=== PATIENT | male | born 1955 | race Caucasian/White ===

== ENCOUNTER 2019-05-09 12:56 | Outpatient (CLI) | payer MEDICARE, OTHER, SELFPAY ==
--- NOTE | ~2019-05-09 | US_ITS ---
EXAMINATION: US venous doppler [facility] DATE: 05/09/2019 13:36 INDICATION: Left lower limb swelling. TECHNIQUE: Grayscale ultrasound images without and with compression and Doppler ultrasound images of the left lower extremity veins were obtained. COMPARISON: Ultrasound 02/18/2016 FINDINGS: The visualized portions of left common femoral vein, profunda (deep) femoral vein, femoral vein, popl iteal vein, peroneal veins, posterior tibial veins, and greater saphenous vein outflow are patent. IMPRESSION: 1. No deep venous thrombosis. Reviewed, dictated and finalized at location A. MACHINE OPERATOR
== END 2019-05-09 12:57 | disposition home or self-care (01) ==
PROVIDERS: PCP Family Medicine; Visit Provider Orthopaedic Surgery
DX: M79.89 Other specified soft tissue disorders (principal)
CPT/HCPCS: 93971

== ENCOUNTER 2020-10-29 11:31 | Outpatient (CLI) | payer MEDICARE, OTHER, SELFPAY ==
--- NOTE | 2020-10-29 11:30 | ECG_ITS ---
Measurements Intervals [place] Rate: 67 P: 39 WA: 168 QRS: -7 QRSD: 110 T: 4 QT: 385 QTc: 409 Interpretive Statements SINUS RHYTHM BORDERLINE T WAVE ABNORMALITY- INFERIOR LEADS BASELINE ARTIFACT- I, II, III, AVR, AVL, AVF BORDERLINE ECG Electronically Signed On 10-29-2020 12:25:06 CDT by Ad Fajardo D.O.
[2020-10-29 12:37] LABS: Anion Gap 10 mmol/L (8-16); Blood Urea Nitrogen 20 mg/dL (9-20); Calcium 9.6 mg/dL (8.4-10.2); Carbon Dioxide 24 mmol/L (22-30); Chloride 107 mmol/L (98-107); Estimated Glomerular Filt Rate > 60; Glucose 105 mg/dL (65-110); Sodium 141 mmol/L (137-145)
== END 2020-10-29 11:32 | disposition home or self-care (01) ==
LOC: ANHSURGERY 11:38
PROVIDERS: Anesthesiology; PCP Family Medicine; Visit Provider Otolaryngology
DX: Z01.818 Encounter for other preprocedural examination (principal); I10 Essential (primary) hypertension; E11.9 Type 2 diabetes mellitus without complications
CPT/HCPCS: 36415; 80048; 93005

== ENCOUNTER → 2020-10-30 00:22 | Outpatient (CLI) | payer MEDICARE, OTHER, SELFPAY ==
[2020-10-30 16:43] LABS: SARS-CoV-2 RNA PCR Negative
== END ==
PROVIDERS: PCP Family Medicine; Visit Provider Otolaryngology
DX: Z01.812 Encounter for preprocedural laboratory examination (principal); Z20.822 Contact with and (suspected) exposure to COVID-19
CPT/HCPCS: C9803; U0003; U0005

== ENCOUNTER 2020-11-02 01:11 | Day surgery (SDC) | payer MEDICARE, OTHER, SELFPAY ==
[2020-10-28 13:55] VITALS: BMI 30.2
--- NOTE | 2020-11-01 06:13 | P.HP_ITS ---
History of Present Illness History of Present Illness Consent: Risks, benefits, and alternatives have been discussed and questions answered. Patient agrees to proceed with procedure. Chief complaint: vocal cord nodules Narrative: Jon Moreira is a 65 year old male a long history of hoarseness he has been evaluated and scoped in the office several times was seen by another consulting practice director vocal nodule was diagnosed he is admit Review of Systems Review of Systems: All systems reviewed & are unremarkable except as noted in HPI and below PMFSH Past Medical History Medical History Anemia Ankle fracture, right Chronic anxiety Chronic depression Chronic hip pain, bilateral Chronic low back pain without sciatica Chronic pain of right knee Closed patellar sleeve fracture of left knee with routine healing Collar bone fracture Coronary artery disease involving [place] coronary artery of [place] heart without angina pectoris Diabetic peripheral neuropathy Essential (primary) hypertension Finger fracture Irritable bowel syndrome with diarrhea Male erectile dysfunction, unspecified Mixed hyperlipidemia Other chronic pain Type 2 diabetes mellitus without complication, without long-term current use of insulin Vitamin B12 deficiency anemia, unspecified Surgical History Surgical History History of cholecystectomy Family History Family History Mother Diabetes mellitus Heart disease Social History Social History Smoking packs per day: 2 Smoking cigarettes per day: 40.0 Years smoked: 17 Smoking pack-years: 34.00 Smoking status: Former smoker Tobacco type: cigarettes Smoking end date: 04/09/87 Alcohol intake: never Substance use: never Substance use type: does not use Gender identity (if verbalized by the patient): Male Spiritual care concerns: No Meds Home Medications and Allergies Home Medications Medication Instructions Recorded Confirmed Type cyanocobalamin (vitamin B-12) 1,000 mcg PO DAILY 03/05/19 10/28/20 History 1,000 mcg tablet nebivolol 5 mg tablet 5 mg PO DAILY #90 tablet 12/17/19 10/28/20 Rx gabapentin 600 mg tablet See Rx Instructions .ROUTE 01/19/20 10/28/20 Rx .COMPLEX #270 tablet lisinopril 40 mg tablet 40 mg PO DAILY #30 tablet 07/02/20 10/28/20 Rx metformin 500 mg tablet,extended 1,000 mg PO BID #120 tablet 09/27/20 10/28/20 Rx release 24 hr alprazolam 1 mg PO HS PRN 10/28/20 10/28/20 History Allergies Allergy/AdvReac Type Severity Reaction Status Date / Time adhesive tape AdvReac TEARS SKIN Verified 10/28/20 13:35 Exam Narrative: Exam Narrative: chest clear heart without murmurs abdomen is soft extremities negative fiberoptic evaluation reveals a vocal nodule Assessment and Plan Additional Plan plan microlaryngoscopy and biopsy of
--- NOTE | 2020-11-01 12:17 | WPDANESEPPF ---
Anes - Initial Pre Proc Eval Procedure: Operation Date: 11/02/20 09:45 Proposed Procedures p Microlaryngoscopy With Biopsy - Avery Farris MD Date/Time: 11/01/20 12:17 Surgeon: Avery Farris MD Pre Op Diagnosis: vocal cord nodules Patient Data Age: 65 Gender: M Height: 1.78 m Weight: 95.35 kg Allergies Allergy/AdvReac Type Severity Reaction Status Date / Time adhesive tape AdvReac TEARS SKIN Verified 11/02/20 07:54 Home Medications Medication Instructions Recorded Confirmed Type cyanocobalamin (vitamin B-12) 1,000 mcg PO DAILY 03/05/19 11/02/20 History 1,000 mcg tablet nebivolol 5 mg tablet 5 mg PO DAILY #90 tablet 12/17/19 11/02/20 Rx gabapentin 600 mg tablet See Rx Instructions .ROUTE 01/19/20 11/02/20 Rx .COMPLEX #270 tablet lisinopril 40 mg tablet 40 mg PO DAILY #30 tablet 07/02/20 11/02/20 Rx metformin 500 mg tablet,extended 1,000 mg PO BID #120 tablet 09/27/20 11/02/20 Rx release 24 hr alprazolam 1 mg PO HS PRN 10/28/20 11/02/20 History Patient hx anesthesia problems: none Family hx anesthesia problems: none PMFSH Past Medical History Medical History (Updated 11/01/20 @ 12:17 by Artemio Cononrs DO) Anemia Ankle fracture, right Chronic anxiety Chronic depression Chronic hip pain, bilateral Chronic low back pain without sciatica Chronic pain of right knee Closed patellar sleeve fracture of left knee with routine healing Collar bone fracture Coronary artery disease involving [place] coronary artery of [place] heart without angina pectoris Diabetic peripheral neuropathy Essential (primary) hypertension Finger fracture History of heart attack 2017 Irritable bowel syndrome with diarrhea Male erectile dysfunction, unspecified Mixed hyperlipidemia Other chronic pain Type 2 diabetes mellitus without complication, without long-term current use of insulin Vitamin B12 deficiency anemia, unspecified Surgical History Surgical History (Updated 11/01/20 @ 12:17 by Artemio Connors DO) History of cholecystectomy History of coronary artery stent placement x2 Family History Family History Mother Diabetes mellitus Heart disease Social History Social History Smoking packs per day: 2 Smoking cigarettes per day: 40.0 Years smoked: 17 Smoking pack-years: 34.00 Smoking status: Former smoker Tobacco type: cigarettes Smoking end date: 04/09/87 Alcohol intake: never Substance use: never Substance use type: does not use Living arrangements: with family Gender identity (if verbalized by the patient): Male Spiritual care concerns: No Anes - Eval Final PreProcedure Day of Procedure 11/01/20 12:17 Patient weight: obese Heart: regular rate and rhythm Lungs: clear to auscultation and normal air movement Airway: Mallampati scale class III Neurological: alert and oriented Last oral intake: >/= 8 hours ASA classification: III Emergent: no Anesthetic plan: proceed Anesthesia type and monitoring: general ETT and standard monitoring Informed Consent: The patient's anesthetic plan and its attendant risks and benefits were discussed with the patient/family/POA. Questions were solicited and answers provided to the satisfaction of the patient/family/POA.
[2020-11-02] VITALS (7 sets, daily range): BP systolic 103–134; BP diastolic 68–90; PULSE 54–64; RESP 16–18; TEMP 36.2; O2SAT 94–100
--- NOTE | 2020-11-02 06:19 | WPDHPUPDATE1 ---
History and Physical Update Update Date/Time: 11/02/20 06:19 History and Physical has been reviewed, including an updated exam of the patient. There are NO changes in the patient's condition. Risks, benefits, and alternatives have been discussed and questions answered. Patient agrees to proceed with procedure.
[2020-11-02] MEDS: LACTATED RINGERS 1,000 ML 30 ML IV CONT (08:08)
[2020-11-02 08:13] LABS: Glucose Point of Care 112 mg/dl (65-105)
--- NOTE | 2020-11-02 09:26 | W.PM.PROC2 ---
Procedure Note - Detailed Date of Procedure 11/02/20 Pre-op Diagnosis vocal cord nodules Post-op Diagnosis same Procedure Performed microlaryngoscopy and vocal cord biopsy left side Surgeon Avery Farris MD Anesthesia general Description of Procedure patient was prepped and draped in usual fashion general anesthesia the laryngoscope was edges level of glottis with the aid of micro technique and a 4 mm lens on the operating microscope a small nodule on the left anterior cord was grasped removed patient awakened returned to recovery in good Estimated Blood Loss 0 Pathology yes Complications No immediate complications Condition stable Disposition PACU
[2020-11-02 09:52] LABS: Glucose Point of Care 102 mg/dl (65-105)
== END 2020-11-02 10:57 | disposition home or self-care (01) ==
PROVIDERS: PCP Family Medicine; Visit Provider Otolaryngology
PROC: 0CJS8ZZ Inspection of Larynx, Via Natural or Artificial Opening Endoscopic (ICD-10-PCS; CPT 31575; principal; 2020-11-02 09:45)
DX: J38.2 Nodules of vocal cords (principal); I10 Essential (primary) hypertension; E11.42 Type 2 diabetes mellitus with diabetic polyneuropathy; I25.2 Old myocardial infarction; E78.2 Mixed hyperlipidemia; K58.0 Irritable bowel syndrome with diarrhea; I25.10 Atherosclerotic heart disease of native coronary artery without angina pectoris; G89.29 Other chronic pain; D51.3 Other dietary vitamin B12 deficiency anemia; F41.8 Other specified anxiety disorders; Z79.84 Long term (current) use of oral hypoglycemic drugs; Z87.891 Personal history of nicotine dependence; E66.9 Obesity, unspecified; Z68.29 Body mass index [BMI] 29.0-29.9, adult
CPT/HCPCS: 31536; 82948; 88305; J0330; J1100; J2250; J2405; J2704; J3010; J7120

== ENCOUNTER 2023-09-08 07:10 | Outpatient (CLI) | payer MEDICARE, OTHER, SELFPAY ==
[2023-09-08 08:06] LABS: Basophils Percent Auto 0.6 % (0.2-1.2); Eosinophils Absolute Auto 0.1 K/mm3 (0-0.3); Hematocrit 36.3 % (42.0-52.0); Hemoglobin 11.9 g/dL (14.0-18.0); Immature Granulocyte Absolute 0.01 K/mm3 (0.00-0.031); Immature Granulocyte Percent A 0.2 % (0-0.5); Lymphocytes Absolute Auto 1.85 K/mm3 (0.9-3.2); Lymphocytes Percent Auto 37.9 % (18.3-44.2); Mean Corpuscular HGB Conc 32.8 g/dl (32-36); Mean Corpuscular Hemoglobin 30.4 pg (26-34); Mean Corpuscular Volume 92.8 fl (80-100); Monocytes Absolute Auto 0.4 K/mm3 (0.1-0.6); Monocytes Percent Auto 8.2 % (2.6-8.5); Neutrophils Absolute Auto 2.5 K/mm3 (1.3-6.7); Neutrophils Percent Auto 51.1 % (45.5-73.1); Platelet Count Result 195 k/mm3 (150-375); Red Blood Count 3.91 M/mm3 (4.6-6.20); Red Cell Distribution Width 14.5 % (11.5-14.5); White Blood Count 4.9 K/mm3 (4.5-10.0)
[2023-09-08 08:14] LABS: Appearance Urine Clear (Clear); Bilirubin Urine Negative (Negative); Blood Urine Negative (Negative); Color Urine Yellow (Yellow); Glucose Urine UA Negative (Negative); Ketones Urine Negative (Negative); Leukocyte Esterase Ur Negative LEU/UL (Negative); Nitrate Urine Negative (Negative); Protein Urine Negative (Negative); Specific Grav Ur 1.009 (1.001-1.035)
[2023-09-08 08:17] LABS: Alanine Aminotransferase 11 U/L (6-50); Albumin Level 4.1 g/dL (3.5-5.1); Alkaline Phosphatase 73 U/L (38-126); Anion Gap 7 mmol/L (4-12); Aspartate Amino Transferase 19 U/L (17-59); Bilirubin,Total 0.6 mg/dL (0.2-1.3); Blood Urea Nitrogen 13 mg/dL (9-20); Carbon Dioxide 25 mmol/L (22-30); Chloride 103 mmol/L (98-107); Cholesterol 193 mg/dL (0-200); Estimated Glomerular Filt Rate > 60; Glucose 126 mg/dL (65-110); HDL Direct 48 mg/dL; Potassium 4.3 mmol/L (3.4-5.0); Sodium 135 mmol/L (137-145); Triglycerides 111 mg/dL (<150)
[2023-09-08 08:27] LABS: Add Urine Microscopic? NO
[2023-09-08 08:28] LABS: LDL Cholesterol Direct 112 mg/dL
[2023-09-08 08:52] LABS: Iron 49 ug/dL (49-181)
[2023-09-08 09:09] LABS: Percent Iron Saturation 15 % (20-50)
[2023-09-08 09:22] LABS: Folic Acid 6.1 ng/mL (2.76->20)
[2023-09-08 09:27] LABS: Ferritin 9.21 ng/mL (11.1-264)
[2023-09-08 09:30] LABS: Hemoglobin A1C 6.6 % (<5.7)
== END 2023-09-08 07:11 | disposition home or self-care (01) ==
PROVIDERS: PCP Family Medicine; Visit Provider Family Medicine
DX: D64.9 Anemia, unspecified (principal); E11.9 Type 2 diabetes mellitus without complications; E78.2 Mixed hyperlipidemia
CPT/HCPCS: 36415; 80048; 80061; 80076; 81003; 82607; 82728; 82746; 83036; 83540; 83550; 84443; 85025

== ENCOUNTER 2024-05-24 06:55 | Outpatient (CLI) | payer MEDICARE, OTHER, SELFPAY ==
--- OUTSIDE RECORDS SUMMARY | 2024-05-24 06:59 | XMS_ITS | Continuity of Care Document ---
Author Organization [facility] [place] [address] [place] [address] [place] [address] Phone Care Team Providers Care Sandfill Operator Name Role Phone Deni Davis Unavailable Unavailable Procedures Procedure Date Eye Exam Established Pt SV Hi-Index Sphere +/- 4.12 To +/-7.00 M Tint Photochromatic, Hi Index 8 Prism Lens/es Tax - Medical Advance Directives Directive Yes / No Effective Date File Name No Information Encounters Encounter Description Practice Location Reason(s) For Visit Diagnoses Date Provider Providers Copied on Encounter [facility], [address] [place], [place] [address], [place], [place], [id number], [place] tel:[phone] [facility] No Information [address]. Formerly [facility] [address], [place], [address], [place]. tel:[phone] [facility], [address] [place] [address] [address], [place], [place], [id number], [place] tel:[phone] [facility] No Information [address] [facility]. [address] [facility], [address], [place], [place], [id number], [place]. tel:[phone] Referring Provider: Andrew Marin, [address] [facility] [address], [place], [address]. tel:[phone] lux Provider: Nadya Terry, [address] [facility], [place], [address]. tel:[phone] Family History Family Member Type Diagnosis Age At Onset No Information Payers Payer name Insurance type Covered constitution party ID Authoriza tion(s) No Information Social History Type Description Quantity Date Captured Comments Sex Male Smoking Status No Information Chief Complaint And Reason For Visit No Information Reason For Referral Reason For Referral No Information History Of Present Illness Encounter Date Complaint History Of Prese nt Illness No Information Functional Status Date Functional Assessmen t No Information Instructions Date Instruction Additional Infor mation No Information Assessments Type Assessment Date No Information Patient Care Teams Name Effective Dates (start - stop) Status Members No Information
--- OUTSIDE RECORDS SUMMARY | 2024-05-24 06:59 | XMS_ITS | Clinical Summary ---
Author Organization [facility] [address] Address [address] [place] [address] Care Team Providers Care Tinsmith Helper Name Role Phone Cooper Carrillo MD Primary Care Provider [phone] Allergies Active Allergy Reactions Criticality Noted Date Comments Adhesive Tape-Silicones Unknown 02/06/2017 Medications ALPRAZolam (XANAX) 1 mg tablet Take 1 tablet (1 mg total) by mouth daily as needed 5 01/26/2017 Active gabapentin (NEURONTIN) 600 mg tablet Take 1 tablet (600 mg total) by mouth 2 (two) times a day 3 01/11/2017 Active lisinopril (PRINIVIL,ZESTR IL) 40 mg tablet Take 1 tablet (40 mg total) by mouth 2 (two) times a day 11 01/26/2017 Active metFORMIN XR (GLUCOPHAGE XR) 500 mg 24 hr tablet Take 1 tablet (500 mg total) by mouth 2 (two) times a day with meals 11 01/11/2017 Active BYSTOLIC 10 mg tablet Take 0.5 tablets (5 mg total) by mouth daily 5 01/11/2017 Active cyanocobalamin (Vitamin B-12) 1,000 mcg tabletIndicatio ns:Prevention of Vitamin B12 Deficiency Take 100 mcg by mouth daily. Active aspirin 81 mg tablet Take 1 tablet (81 mg total) by mouth daily. 90 tablet 1 12/18/2017 Active nitroglycerin (NITROSTAT) 0.[address] 1 tablet (0.4 mg total) under the tongue every 5 (five) minutes as needed for chest pain 25 tablet 08/12/2019 Active Active Problems Problem Noted Date Diagnosed Date History of coronary artery stent placement 02/05 Erectile dysfunction due to diseases classified elsewhere 05/18/2017 History of non-ST elevation myocardial infarctio n (NSTEMI) 02/06/2017 Diabetes mellitus type II, non insulin dependent (CMS/HCC) 02/06/2017 Essential hypertension 02/06/2017 Dyslipidemia 02/06/2017 Anxiety Surgical History Surgery Date Site/Laterality Comments CHOLECYSTECTOMY Medical History Medical History Date Comments Anxiety Erectile dysfunction due to diseases classified elsewhere 05/18/2017 Family History Medical History Relation Name Comments Cancer Brother Diabetes Mother Cirrhosis Sister Relation Name Status Comments Brother Mother Sister Social History Tobacco Use Types Packs/Day Years Used Date Smoking Tobacco: Former Smokeless Tobacco: Never Tobacco Cessation:Counseling Given: Not Answered Alcohol Use Standard Drinks/Week Comments No 0 (1 standard drink = 0.6 oz pur e alcohol) Personal Safety Answer Date Recorded Getting School Help Needed Not on file 05/14 Sex and Gender Information Value Date Recorded Sex Assigned at Not on file Legal Sex Male 9:32 AM CDT Gender Identity Not on file Sexual Orientation Not on file Obstetrics History Last Filed Vital Signs Vital Sign Reading Time Taken Comments Blood Pressure 104/64 08/21/2023 3:08 PM CDT Pulse 88 08/21/2023 3:08 PM CDT Temperature - - Respiratory Rate - - Oxygen Saturation 95% 08/21/2023 3:08 PM CDT Inhaled Oxygen Concentration - - Weight 101.2 kg (223 lb 3.2 oz) 08/21/2023 3:08 PM CDT Height 177.8 cm (5' 10 ) 08/21/2023 3:08 PM CDT Body Mass Index 32.03 08/21/2023 3:08 PM CDT Plan of Treatment Health Maintenance Due Date Last Done Comments Albumin Creatinine Ratio, Urine 1953 Colon Cancer Screening-Colonoscopy 1953 Depression Screening 1953 Fall Risk Assessment 1953 Hemoglobin A1C 1953 Hepatitis C Screening 1953 eGFR 1953 Dilated Eye Exam 1953 Foot Exam 1953 Pneumococcal vaccine 65+ (1 of 2 - PCV) 1959 DTaP/Tdap/Td Vaccine (1 - Tdap) 1964 Hepatitis B Screening 1971 Zoster Vaccine (1 of 2) 2003 Abdominal Aortic Aneurysm (A AA) Screen 2018 Well Visit 65+ 2018 Covid-19 Vaccine (3 - 2023-2 5 season) 2023 11/04/2020, 10/14/2020 Influenza Vaccine (#1) 2023 Lipid Panel 08/20/2024 08/21/2023, 08/07, 08/16/2021, Additional history exists Procedures Procedure Name Priority Date/Time Associated Diagnosis Comments POCT LIPID PANEL Routine 08/21/2023 3:09 PM CDT Lipid screening from Last 3 Months or Most Recently Relevant to Health Maintenance Results * POCT lipid panel (08/21/2023 3:09 PM CDT) Cholesterol, POC 190 mg/dL HDL, POC 43 mg/dL Triglycerides, POC 124 mg/dL LDL Cholesterol POC 122 mg/dL Chol/HDL Ratio, POC 29 Non-HDL Cholesterol, POC 147 mg/dL Cholesterol Total, POC 190 mg/dL Capillary blood 08/21/2023 3 :09 PM CDT Teddy Humphries MD POINT OF CARE TEST ORDER [place] Edited Result - Final from Last 3 Months or Most Recently Relevant to Health Maintenance Insurance MEDICARE [employer] [facility] [place] [address] [id number] MEDICARE [address] [address] MEDICARE [employer]IANS [facility] Care Teams Tinsmith Helper Relationship Specialty Start Date End Date Cooper Carrillo MD [address] [id number] PCP - General Family Medicine 01/22/17
--- OUTSIDE RECORDS SUMMARY | 2024-05-24 06:59 | XMS_ITS | Referral Summary ---
Author Organization [facility] [place] [place] [address] Address [address] [place] [address] Care Team Providers Care Interactive Web Developer Name Role Phone Cooper Carrillo MD Primary Care Provider [phone] Allergies Active Allergy Reactions Criticality Noted Date [...] 02/06/2017 Essential hypertension 02/06/2017 Dyslipidemia 02/06/2017 Anxiety Social History Tobacco Use Types Packs/Day Years [...] on file Sexual Orientation Not on file Last Filed Vital Signs Vital Sign Reading [...] 08/21/2023 3:08 PM CDT Plan of Treatment Not on file Procedures Procedure Name Priority Date/Time Associated Diagnosis [...] Most Recently Relevant to Health Maintenance Insurance [address] [id number] MEDICARE [facility] [place] MEDICARE MEDICARE [facility] [facility] Care Teams Interactive Web Developer Relationship Specialty Start Date End Date Cooper Carrillo MD [address] [address] PCP - General Family Medicine 01/22/17
[2024-05-24 07:22] LABS: Basophils Percent Auto 0.4 % (0.2-1.2); Eosinophils Absolute Auto 0.1 K/mm3 (0-0.3); Eosinophils Percent Auto 1.5 % (0-4.4); Hematocrit 37.9 % (42.0-52.0); Hemoglobin 12.4 g/dL (14.0-18.0); Immature Granulocyte Absolute 0.01 K/mm3 (0.00-0.031); Immature Granulocyte Percent A 0.2 % (0-0.5); Lymphocytes Absolute Auto 1.47 K/mm3 (0.9-3.2); Lymphocytes Percent Auto 32.1 % (18.3-44.2); Mean Corpuscular HGB Conc 32.7 g/dl (32-36); Mean Corpuscular Hemoglobin 29.8 pg (26-34); Mean Corpuscular Volume 91.1 fl (80-100); Mean Platelet Volume 9.5 fl (7.4-10.4); Monocytes Absolute Auto 0.4 K/mm3 (0.1-0.6); Monocytes Percent Auto 7.9 % (2.6-8.5); Neutrophils Absolute Auto 2.7 K/mm3 (1.3-6.7); Neutrophils Percent Auto 57.9 % (45.5-73.1); Platelet Count Result 192 k/mm3 (150-375); Red Blood Count 4.16 M/mm3 (4.6-6.20); Red Cell Distribution Width 16.4 % (11.5-14.5); White Blood Count 4.6 K/mm3 (4.5-10.0)
[2024-05-24 07:24] LABS: Add Urine Microscopic? NO; Appearance Urine Clear (Clear); Bilirubin Urine Negative (Negative); Blood Urine Negative (Negative); Color Urine Yellow (Yellow); Glucose Urine UA Negative (Negative); Ketones Urine Negative (Negative); Leukocyte Esterase Ur Negative LEU/UL (Negative); Nitrate Urine Negative (Negative); Protein Urine Negative (Negative); Specific Grav Ur 1.016 (1.001-1.035)
[2024-05-24 07:32] LABS: Hemoglobin A1C 7.7 % (<5.7)
[2024-05-24 07:34] LABS: Alanine Aminotransferase 19 U/L (6-50); Albumin Level 4.2 g/dL (3.5-5.1); Alkaline Phosphatase 84 U/L (38-126); Anion Gap 9 mmol/L (4-12); Aspartate Amino Transferase 20 U/L (17-59); Bilirubin,Total 0.6 mg/dL (0.2-1.3); Blood Urea Nitrogen 14 mg/dL (9-20); Calcium 9.3 mg/dL (8.4-10.2); Carbon Dioxide 23 mmol/L (22-30); Chloride 106 mmol/L (98-107); Cholesterol 189 mg/dL (0-200); Estimated Glomerular Filt Rate > 60; Glucose 137 mg/dL (65-110); HDL Direct 54 mg/dL; Potassium 4.4 mmol/L (3.4-5.0); Sodium 138 mmol/L (137-145); Triglycerides 71 mg/dL (<150)
[2024-05-24 07:45] LABS: LDL Cholesterol Direct 114 mg/dL
[2024-05-24 08:03] LABS: Prostate Specific Antigen 0.2 ng/mL (< OR = 4.0)
[2024-05-24 08:11] LABS: Iron 55 ug/dL (49-181)
[2024-05-24 08:20] LABS: Percent Iron Saturation 15 % (20-50)
[2024-05-24 08:42] LABS: Microalbumin Urine Random 6.8 mg/L (0-16.7)
[2024-05-24 08:43] LABS: Creatinine Urine 101.9 mg/dL; MALB Creatinine Ratio 6.7 mg/g (0-30)
== END 2024-05-24 06:56 | disposition home or self-care (01) ==
PROVIDERS: PCP Family Medicine; Visit Provider Family Medicine
DX: E11.9 Type 2 diabetes mellitus without complications (principal); R79.0 Abnormal level of blood mineral; Z12.5 Encounter for screening for malignant neoplasm of prostate; E78.2 Mixed hyperlipidemia
CPT/HCPCS: 36415; 80048; 80061; 80076; 81003; 82043; 82728; 83036; 83540; 83550; 84153; 85025; G0103

== ENCOUNTER 2024-11-29 06:34 | Outpatient (CLI) | payer MEDICARE, OTHER, SELFPAY ==
--- OUTSIDE RECORDS SUMMARY | 2024-11-29 06:37 | XMS_ITS | Clinical Summary ---
Author Organization [facility] [place] [address] Address [address] [place] [address] Care Team Providers Care Supervisor Rod Placing Name Role Phone Cooper Carrillo MD Primary Care Provider [phone] Allergies Active Allergy Reactions Criticality Noted Date [...] for chest pain 25 tablet 08/12/2019 Active HYDROcodone-kourtney taminophen (NORCO) 5-325 mg per tablet 1 TABLET ORALLY FOUR TIMES DAILY NEEDED FOR PAIN 09/29/2024 Active Active Problems Problem Noted Date Diagnosed Date History of coronary artery stent placement 02/05 Erectile dysfunction due to diseases classified elsewhere 05/18/2017 History of non-ST elevation myocardial infarctio n (NSTEMI) 02/06/2017 Diabetes mellitus type II, non insulin dependent 02/06/2017 Essential hypertension 02/06/2017 Dyslipidemia 02/06/2017 Anxiety Encounters Date Type Department Care Team Description 10/09/2024 3:00 PM CDT Office Visit [facility] [address] [place] [address] Teddy Humphries MD History of coronary artery stent placement (Primary Dx) from Last 3 Months Surgical History Surgery Date Site/Laterality Comments CHOLECYSTECTOMY [...] drink = 0.6 oz pur e alcohol) Sex and Gender Information Value Date Recorded Sex Assigned at Not on file Legal Sex Male 9:32 AM CDT Gender Identity Not on file Sexual Orientation Not on file Obstetrics History Last Filed Vital Signs Vital Sign Reading Time Taken Comments Blood Pressure 108/62 10/09/2024 2:41 PM CDT Pulse 71 10/09/2024 2:41 PM CDT Temperature - - Respiratory Rate - - Oxygen Saturation 98% 10/09/2024 2:41 PM CDT Inhaled Oxygen Concentration - - Weight 104.1 kg (229 lb 8 oz) 10/09/2024 2:41 PM CDT Height 177.8 cm (5' 10) 10/09/2024 2:41 PM CDT Body Mass Index 32.93 10/09/2024 2:41 PM CDT Plan of Treatment Health Maintenance Due Date Last Done Comments Albumin Creatinine Ratio, Urine 1953 Colon Cancer Screening-Colonoscopy 1953 Depression Screening 1953 Fall Risk Assessment 1953 Hemoglobin A1C 1953 Hepatitis C Screening 1953 eGFR 1953 Dilated Eye Exam 1953 Foot Exam 1953 DTaP/Tdap/Td Vaccine (1 - Tdap) 1964 Hepatitis B Screening 1971 Pneumococcal vaccine 65+ (1 of 2 - PCV) 1972 Zoster Vaccine (1 of 2) 2003 Abdominal Aortic Aneurysm (A AA) Screen 2018 Well Visit 65+ 2018 Covid-19 Vaccine (3 - 2023-2 5 season) 2023 11/04/2020, 10/14/2020 Lipid Panel 08/20/2024 08/21/2023, 08/07, 08/16/2021, Additional history exists Influenza Vaccine (#1) 2024 Procedures Procedure Name Priority Date/Time Associated Diagnosis [...] Relevant to Health Maintenance Insurance MEDICARE [employer] [address] [id number] MEDICARE [address] [address] MEDICARE [employer] Care Teams Supervisor Rod Placing Relationship Specialty Start Date End Date Cooper Carrillo MD [address] [address] PCP - General Family Medicine 01/22/17
[2024-11-29 07:50] LABS: Hematocrit 37.2 % (42.0-52.0); Hemoglobin 11.9 g/dL (14.0-18.0); Immature Granulocyte Percent A 0.2 % (0-0.5); Lymphocytes Absolute Auto 1.53 K/mm3 (0.9-3.2); Mean Corpuscular HGB Conc 32.0 g/dl (32-36); Mean Corpuscular Hemoglobin 31.3 pg (26-34); Mean Corpuscular Volume 97.9 fl (80-100); Nucleated Red Blood Cells Absolute Auto 0.000 K/mm3 (0.0-0.012); Nucleated Red Blood Cells Perc 0.0 % (0.0-0.2); Platelet Count Result 179 k/mm3 (150-375); Red Blood Count 3.80 M/mm3 (4.6-6.20); White Blood Count 4.9 K/mm3 (4.5-10.0)
[2024-11-29 08:01] LABS: Hemoglobin A1C 7.2 % (<5.7)
[2024-11-29 08:15] LABS: Iron 102 ug/dL (49-181)
[2024-11-29 08:17] LABS: Alanine Aminotransferase 17 U/L (6-50); Albumin Level 3.9 g/dL (3.5-5.1); Alkaline Phosphatase 86 U/L (38-126); Anion Gap 7 mmol/L (4-12); Aspartate Amino Transferase 18 U/L (17-59); Bilirubin,Total 0.6 mg/dL (0.2-1.3); Blood Urea Nitrogen 61 mg/dL (9-20); Calcium 9.1 mg/dL (8.4-10.2); Carbon Dioxide 22 mmol/L (22-30); Chloride 108 mmol/L (98-107); Cholesterol 193 mg/dL (0-200); Estimated Glomerular Filt Rate 38; Glucose 171 mg/dL (65-110); HDL Direct 35 mg/dL; Potassium 4.9 mmol/L (3.4-5.0); Sodium 137 mmol/L (137-145); Total Protein 7.1 g/dL (6.3-8.2); Triglycerides 161 mg/dL (<150)
[2024-11-29 08:33] LABS: Percent Iron Saturation 35 % (20-50)
[2024-11-29 08:55] LABS: Ferritin 59.60 ng/mL (11.1-264); Thyroid Stimulating Hormone 1.050 uIU/mL (0.465-4.680)
[2024-11-29 09:16] LABS: Vitamin B12 > 1000.0 pg/mL (239-931)
== END 2024-11-29 06:35 | disposition home or self-care (01) ==
PROVIDERS: PCP Family Medicine; Visit Provider Family Medicine
DX: E78.2 Mixed hyperlipidemia (principal); E11.9 Type 2 diabetes mellitus without complications; D51.9 Vitamin B12 deficiency anemia, unspecified; R79.0 Abnormal level of blood mineral
CPT/HCPCS: 36415; 80048; 80061; 80076; 82607; 82728; 83036; 83540; 83550; 84443; 85025

== ENCOUNTER 2025-01-03 06:55 | Outpatient (CLI) | payer MEDICARE, OTHER, SELFPAY ==
[2025-01-03 07:31] LABS: Hematocrit 36.5 % (42.0-52.0); Hemoglobin 11.9 g/dL (14.0-18.0); Immature Granulocyte Percent A 0.0 % (0-0.5); Lymphocytes Absolute Auto 1.60 K/mm3 (0.9-3.2); Mean Corpuscular HGB Conc 32.6 g/dl (32-36); Mean Corpuscular Hemoglobin 31.8 pg (26-34); Mean Corpuscular Volume 97.6 fl (80-100); Nucleated Red Blood Cells Absolute Auto 0.000 K/mm3 (0.0-0.012); Nucleated Red Blood Cells Perc 0.0 % (0.0-0.2); Platelet Count Result 184 k/mm3 (150-375); Red Blood Count 3.74 M/mm3 (4.6-6.20); White Blood Count 4.8 K/mm3 (4.5-10.0)
[2025-01-03 07:51] LABS: Anion Gap 5 mmol/L (4-12); Blood Urea Nitrogen 19 mg/dL (9-20); Calcium 8.9 mg/dL (8.4-10.2); Carbon Dioxide 26 mmol/L (22-30); Chloride 104 mmol/L (98-107); Estimated Glomerular Filt Rate > 60; Glucose 142 mg/dL (65-110); Potassium 4.2 mmol/L (3.4-5.0); Sodium 135 mmol/L (137-145)
== END 2025-01-03 06:56 | disposition home or self-care (01) ==
PROVIDERS: PCP Family Medicine; Visit Provider Family Medicine
DX: D64.9 Anemia, unspecified (principal); N18.32 Chronic kidney disease, stage 3b
CPT/HCPCS: 36415; 80048; 85025